=== PATIENT | male | born 1980 | race Caucasian/White ===

== ENCOUNTER 2016-08-03 14:59 | Inpatient (IN) | payer SELFPAY ==
[~2016-08-03 14:59] MED LIST: AMBIEN5 M1 PO; BUSPIRONE HCL15 M2; HYDROCODON-ACE1 EA17 PO; TRAZODONE HCL150 M1 PO; TRILEPTAL300 M2 PO; TRILEPTAL600 M2 PO
[2016-08-03 15:36] LABS: ABG CO2 ARTERIAL 29 mmol/L (21-27); ARTERIAL BLD GAS O2 SATURATION 80 % (95-98); ARTERIAL BLOOD GAS PCO2 47 mmHg (32-45); BICARBONATE 27 mmol/L (21-28); BLOOD GAS BASE EXCESS 2 mM/L (-/+3); PH 7.39 Units (7.35-7.45)
[2016-08-03 15:37] LABS: CARBOXYHGB(CARBON MONOXIDE) 5.1 % (0-1.4)
[2016-08-03 15:39] LABS: ARTERIAL PO2 44 mmHg (70-100)
[2016-08-03 16:07] LABS: BASO % 0.5 % (0-2); BASO ABSOLUTE COUNT 0.1 tho/cmm (0.0-0.2); EOS % 2.2 % (0-7); EOSINOPHIL ABSOLUTE COUNT 0.2 tho/cmm (0.0-0.7); HCT-HEMATOCRIT 47.9 % (36.0-53.5); HGB-HEMOGLOBIN 16.9 gm/dl (13.5-17.0); IMMATURE GRANULOCYTES ABSOLUTE 0.04 tho/cmm (0-0.03); IMMATURE GRANULOCYTES PERCENT 0.4 % (0-0.3); LYMPH % 28.8 % (20-45); LYMPH ABSOLUTE COUNT 2.8 tho/cmm (0.8-4.5); MCH (MEAN CORPUSCULAR HGB) 31.3 pg (28.0-32.0); MCHC MEAN CORPUSCULAR HGB CONC 35.3 % (32.0-36.0); MCV (MEAN CELL VOLUME) 88.7 fl (82.0-96.0); MEAN PLATELET VOLUME 9.8 cmc (9.4-12.4); MONO % 5.7 % (0-12); MONOCYTE ABSOLUTE COUNT 0.6 tho/cmm (0.0-1.2); NEUTROPHILS % 62.4 % (40-80); PLATELET COUNT 155 tho/cmm (150-450); RED CELL DISTRIBUTION WIDTH 13.5 % (12.4-16.4); WHITE BLOOD COUNT 9.7 tho/cmm (4.0-10.0)
[2016-08-03] MEDS ORDERED: RAZADYNE PO (16:07)
[2016-08-03] MEDS ORDERED: VITAMIN D31000 UNI3 PO (16:07)
[2016-08-03 16:22] LABS: ALBUMIN 3.9 g/dl (3.5-5.0); ALKALINE PHOSPHATASE 82 U/L (33-138); ALT/SGPT 104 U/L (12-78); ANION GAP 13 mmol/L (0-20); AST/SGOT 63 U/L (10-40); BILIRUBIN,TOTAL 0.4 mg/dl (0.0-1.5); BLOOD UREA NITROGEN 10 mg/dl (6-24); CALCIUM 8.5 mg/dl (8.5-10.5); CARBON DIOXIDE-VENOUS 26 mmol/L (22-32); CHLORIDE 106 mmol/l (96-110); CREATININE 0.76 mg/dl (0.60-1.30); GLUCOSE 84 mg/dL (70-110); MAGNESIUM 2.2 mg/dl (1.8-2.6); PHOSPHOROUS 3.2 mg/dl (2.5-4.9); SODIUM 141 mmol/L (135-145); eGFR VALUE FOR BLACK >90 mL/Min
[2016-08-04] MEDS ORDERED: VITAMIN D250000 UNI1 PO (14:01)
== END 2016-08-04 14:15 | DRG 880 ==
LOC: EMR2 14:59 → BURN 16:02
PROVIDERS: ADMIT Surgery
DX: F41.0 Panic disorder [episodic paroxysmal anxiety] (principal); I10 Essential (primary) hypertension; X08.8XXA Exposure to other specified smoke, fire and flames, initial encounter; Y92.010 Kitchen of single-family (private) house as the place of occurrence of the external cause; F17.210 Nicotine dependence, cigarettes, uncomplicated; F12.90 Cannabis use, unspecified, uncomplicated; F31.9 Bipolar disorder, unspecified; E78.5 Hyperlipidemia, unspecified; K21.9 Gastro-esophageal reflux disease without esophagitis; Z86.19 Personal history of other infectious and parasitic diseases; R06.02 Shortness of breath
CPT/HCPCS: J2060